=== PATIENT | male | born 1990 | race Caucasian/White ===

== ENCOUNTER 2016-12-31 23:24 | Emergency (ER) | payer SELFPAY ==
[~2016-12-31] VITALS: Ht 175.3 cm; Wt 68.0 kg
--- NOTE | 2017-01-01 00:05 | NUR ---
Patient to ER bed 7 to gown for evaluation. Side rails up. Assumed care of pt.
[2017-01-01 00:06] VITALS: BP 118/80; PULSE 98; RESP 17; TEMP 97.7; O2SAT 97
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
--- NOTE | 2017-01-01 00:11 | NUR ---
ER at bedside examining patient.
[2017-01-01] MEDS ORDERED: IBUPROFEN 800 MG TABLET PO ONE (00:15)
--- NOTE | 2017-01-01 00:33 | NUR ---
Patient given written and verbal discharge instructions and verbalizes understanding. ER MD discussed with patient the results and treatment provided. Patient in stable condition. ID arm band removed. Rx of Ibuprofen given. Patient educated on pain management and to follow up with PMD. Pain Scale 0/10. Opportunity for questions provided and answered.
[2017-01-01 00:35] VITALS: BP 112/72; PULSE 89; RESP 16; TEMP 98.1; O2SAT 99
--- NOTE | 2017-01-01 06:53 | NUR ---
Note liliana in EDM - 01/01/17 at 0654 by HERMINIO Patient given written and verbal discharge instructions and verbalizes understanding. ER discussed with patient the results and treatment provided. Patient in stable condition. ID arm band removed. Rx of Ibuprofen given. Patient educated on pain management and to follow up with PMD. Pain Scale 0/10. Opportunity for questions provided and answered.
== END 2017-01-01 00:35 | disposition home or self-care (01) ==
LOC: SED 23:24
DX: S01.112D Laceration without foreign body of left eyelid and periocular area, subsequent encounter (principal); Y93.01 Activity, walking, marching and hiking; Y92.89 Other specified places as the place of occurrence of the external cause; Y99.8 Other external cause status
CPT/HCPCS: 99282